=== PATIENT | female | born 1995 | race Two or more races ===

== ENCOUNTER 2016-04-18 08:39 | Emergency (ER) | payer OTHER ==
[2016-04-18 09:19] LABS: HCG,QUALITATIVE URINE NEGATIVE; URINE BILIRUBIN NEGATIVE (NEGATIVE); URINE BLOOD TRACE (NEGATIVE); URINE GLUCOSE (UA) NEGATIVE (NEGATIVE); URINE LEUKOCYTE ESTERASE 1+ (NEGATIVE); URINE NITRITE NEGATIVE (NEGATIVE); URINE PROTEIN TRACE (NEGATIVE); URINE UROBILINOGEN NORMAL (0-1 mg/dl)
[2016-04-18 09:20] LABS: URINE APPEARANCE CLEAR; URINE COLOR YELLOW
[2016-04-18 09:35] LABS: URINE BACTERIA FEW; URINE EPITHELIAL CELLS 15-20 /hpf; URINE WBC 0-1 /hpf
[2016-04-18] MEDS ORDERED: ACETAMINOPHEN 325 MG TABLET ONE (09:52)
[2016-04-18] MEDS ORDERED: ONDANSETRON 4 MG ODT TAB ONE ×2 (09:52→09:57)
== END 2016-04-18 10:57 | disposition home or self-care (01) ==
LOC: ED 08:39
DX: R10.9 Unspecified abdominal pain (principal); R11.2 Nausea with vomiting, unspecified; R19.7 Diarrhea, unspecified
CPT/HCPCS: 81025; 81001; 99283 ×2; A9270 ×3